=== PATIENT | female | born 1990 ===

== ENCOUNTER 2024-05-03 11:28 | Outpatient (REF) | payer MEDICAID, SELFPAY ==
[2024-05-03 14:28] LABS: HCT 47.2 % (36.0-46.0); HGB 14.9 g/dL (11.2-15.7); MCH 28.2 pg (27.0-33.0); MCHC 31.6 % (32.0-36.0); MCV 89 fL (80-95); MPV 12.7 fL (8.0-11.0); Platelet Count 189 10^3/uL (130-400); RBC 5.29 10^6/uL (3.93-5.22); RDW 14.1 % (11.7-14.6); RDW-SD 46.1 fL; WBC 2.36 10^3/uL (4.4-10.8)
[2024-05-03 15:37] LABS: Iron 28 ug/dL (50-170)
[2024-05-03 15:56] LABS: ALT 36 U/L (14-59); AST 43 U/L (15-37); Alkaline Phosphatase 76 U/L (46-116); Anion Gap 7.1 mmol/L (3-11); BUN 9 mg/dL (7-18); Bilirubin, Total 0.51 mg/dL (0.2-1.0); CO2 27.9 mmol/L (21.0-32.0); CREATININE 0.9 mg/dL (0.55-1.02); Calcium 9.2 mg/dL (8.5-10.1); Calculated LDL 55 mg/dL (<100); Chloride 106 mmol/L (98-107); Cholesterol 128 mg/dL (<200); Estimated GFR 86.57 (mL/min/1.73m2); Glucose 81 mg/dL (74-106); HDL Cholesterol 62 mg/dL (40-60); Magnesium 2.2 mg/dL (1.8-2.4); Potassium 4.1 mmol/L (3.5-5.1); Sodium 141 mmol/L (136-145); Total Protein 7.9 g/dL (6.4-8.2); Triglyceride 57 mg/dL (<150)
== END 2024-05-03 11:29 | disposition home or self-care (01) ==
LOC: NCHCN 11:28
PROVIDERS: Visit Provider Physician Assistant
DX: E55.9 Vitamin D deficiency, unspecified (principal); G43.909 Migraine, unspecified, not intractable, without status migrainosus; K58.9 Irritable bowel syndrome, unspecified; E78.5 Hyperlipidemia, unspecified
CPT/HCPCS: 80053; 80061; 82306; 85027; 83540; 83735; 84443